=== PATIENT | male | born 1950 | race Caucasian/White ===

== ENCOUNTER 2016-11-05 19:54 | Inpatient (IN) | payer MEDICARE, OTHER ==
[~2016-11-05] VITALS: Ht 175.3 cm; Wt 111.6 kg
--- NOTE | 2016-11-05 21:00 | NUR ---
ADMITTED 66 Y/O MALE FROM [facility] , PEVIOUSLY ON ADULT SKILLED NURSING, ON 5150 HOLD, DTS AND DTO, BASED ON HOLD, PATIENT BECAME ENRAGED AT THIS ROOM MATE AND BROKE A LARGE GLASS WINDOW. PATIENT STATED THAT HIS ROOMMATE IS STALKING, THREATENING HIM AND HE SNAPPED THUS BREAKING A WINDOW WITH CHAIR. PATIENT ADMITTING DX. PSYCHOSIS AND DEPRESSION. UPON FACE TO FACE EVALUATION, PATIENT APPEARED ALERT AND ORIENTED X 3-4, ANXIOUS, AGITATED, COOPERATIVE TO THE ADMISSION PROCESS. PATIENT STATED THAT HIS PREVIOUS DOCTOR ADJUSTED HIS MEDICATION AND IT MAKES HIM VERY NERVOUS AND EXTREMELY FATIGUE. PATIENT HAS ALSO NO SOB, NO ACUTE DISTRESS, BREATHING EVEN AND UNLABORED, NO S/S OF PAIN AND DISCOMFORT, BELONGINGS AND CONTRABAND INSPECTED AND PLACED ON THE LOCKED CABINET. NOTIFIED DR. HOGAN AND LAURA TO RECONCILE MEDICATION. PATIENT WANTED NOT TO RELEASE ANY INFORMATION TO ANYONE. WILL CONTINUE TO MONITOR [id number] FOR SAFETY
[2016-11-05] MEDS ORDERED: BUPR150T10 PO (21:27)
[2016-11-05] MEDS ORDERED: DOXE10CA2 PO (21:27)
[2016-11-05] MEDS ORDERED: VENL150C58 PO (21:27)
[2016-11-05] MEDS ORDERED: MAG HYDROX/AL HYDROX/SIMETH 30 ML UDC PO PRN (21:30)
[2016-11-05] MEDS ORDERED: ACETAMINOPHEN 325 MG TABLET PO PRN (21:30)
[2016-11-05] MEDS ORDERED: MAGNESIUM HYDROXIDE 30 ML UDC PO PRN (21:30)
[2016-11-05 23:34] VITALS: BP 101/53
[2016-11-06] MEDS ORDERED: clonazePAM 0.5 MG TABLET ONE (06:16)
[2016-11-06 07:31] LABS: BASOPHILS % (AUTO) 0.4 % (0.0-2.0); EOSINOPHILS # (AUTO) 0.4 /CMM (0.0-0.7); EOSINOPHILS % (AUTO) 4.6 % (0.0-6.0); HEMATOCRIT 37 % (39-51); HEMOGLOBIN 12.8 g/dL (13.5-17.5); LYMPHOCYTES # (AUTO) 3.3 /CMM (0.8-4.8); LYMPHOCYTES % (AUTO) 36.4 % (20.0-44.0); MEAN CORPUSCULAR HEMOGLOBIN 30 PG (26.0-33.0); MEAN CORPUSCULAR HGB CONC 35 g/dl (31.0-36.0); MEAN CORPUSCULAR VOLUME 87 fL (80-96); MONOCYTES # (AUTO) 0.8 /CMM (0.1-1.30); MONOCYTES % (AUTO) 8.9 % (2.0-12.0); NEUTROPHILS # (AUTO) 4.5 /CMM (1.8-8.9); NEUTROPHILS % (AUTO) 49.7 % (43.0-81.0); PLATELET COUNT (AUTO) 321 /CMM (150-450); RDW COEFFICIENT OF VARIATION 12.6 (11.5-15.0); RED BLOOD CELL COUNT(AUTO) 4.24 MIL/uL (4.5-6.0); WHITE BLOOD COUNT (AUTO) 9.1 K/uL (4.3-11.0)
[2016-11-06 07:53] LABS: ALBUMIN 3.5 g/dL (3.4-5.0); BILIRUBIN,TOTAL 0.3 mg/dL (0.2-1.0); CALCIUM, SERUM 8.7 mg/dL (8.5-10.1); CREATININE 1.1 mg/dL (0.6-1.3); POTASSIUM 4.1 mmol/L (3.5-5.1); TOTAL PROTEIN, SERUM 7.3 g/dL (6.4-8.2)
[2016-11-06 08:00] VITALS: BP 118/76
[2016-11-06] MEDS: ARIPIPRAZOLE 2 MG TABLET PO SCH (12:00)
[2016-11-06] MEDS ORDERED: buPROPion SR 150 MG TABLET.ER PO SCH (12:00)
[2016-11-06] MEDS: VENLAFAXINE XR 150 MG CAP.SR.24H PO SCH ×2 (12:00→13:53)
[2016-11-06] MEDS: clonazePAM 0.5 MG TABLET PO PRN (12:21)
--- NOTE | 2016-11-06 12:22 | NUR ---
INTERIOR DESIGN INSTRUCTOR-NOTES PATIENT STATED " I NEED MY MEDICINE FOR MY ANXIETY". KLONOPIN 0.5MG P.O GIVEN PRN ORDER. WILL CONT. MONITORING FOR SAFETY AND BEHAVIOR.
[2016-11-06] MEDS: buPROPion SR 100 MG TABLET.ER PO SCH ×3 (12:30→17:20)
--- NOTE | 2016-11-06 13:31 | NUR ---
SPREAD CUTTER-NOTES PATIENT STRONGLY REFUSED ABILIFY 2MG P.O,EFFEXOR Xr 150mg P.O AND WELLBUTRIN Sr 100MG P.O. .PATIENT STATED" THERE IS NO POINT TAKING THESE MEDICATIONS BECAUSE ITS NOT HELPING ME". OFFERED X3.
--- NOTE | 2016-11-06 13:55 | NUR ---
CARDIOTHORACIC ICU RN-NOTES PATIENT STATED" GIVE ME THE WELLBUTRIN AND THE EFFEXOR NOT THE ABILIFY BECAUSE ITS NOT HELPING ME." WELLBUTRIN 100MG P.O AND EFFEXOR 150MG P.O GIVEN TO THE PATIENT. ABILIFY WAS DISCARDED WITNESS BY ONE OF THE FORGE HAND.
[2016-11-06 16:00] VITALS: BP 117/69
[2016-11-06 19:06] LABS: IRON, SERUM 58 ug/dl (50-175); TOTAL IRON BINDING CAPACITY 342 ug/dl (250-450)
[2016-11-06 20:33] VITALS: BP 115/65
[2016-11-06] MEDS: TEMAZEPAM 7.5 MG CAPSULE PO PRN (22:19)
[2016-11-07 08:00] VITALS: BP 118/69
[2016-11-07] MEDS: VENLAFAXINE XR 150 MG CAP.SR.24H PO SCH (08:15)
[2016-11-07] MEDS: buPROPion SR 100 MG TABLET.ER PO SCH ×2 (08:15→16:18)
[2016-11-07] MEDS: clonazePAM 0.5 MG TABLET PO PRN ×3 (08:19→21:02)
[2016-11-07] MEDS: ARIPIPRAZOLE 2 MG TABLET PO SCH (08:59)
[2016-11-07] MEDS: QUETIAPINE FUMARATE 100 MG TABLET PO SCH ×2 (12:28→17:12)
[2016-11-07] MEDS: GABAPENTIN 300 MG CAPSULE PO SCH ×2 (12:28→16:18)
--- NOTE | 2016-11-07 13:00 | NUR ---
Initial Discharge Plan: Patient resides at [facility] [address] [facility]. [facility], [address]. ([phone]). Pt. is unsure if he would like to return due to him not getting along with his roommate. Possible need for placement. used car make ready worker spoke to Viviana from [facility]. Who stated that they cannot take the patient back due to his behavior. used car make ready worker will help form a safe and proper discharge.
[2016-11-07 16:00] VITALS: BP 125/75
[2016-11-07] MEDS ORDERED: LEVO50TA8 PO (19:57)
[2016-11-07] MEDS ORDERED: ATEN50TA PO (19:57)
[2016-11-07] MEDS ORDERED: ATOR10TA PO (19:57)
[2016-11-07 20:59] VITALS: BP 114/48
[2016-11-08 08:00] VITALS: BP 140/85
[2016-11-08] MEDS: LEVOTHYROXINE SODIUM 50 MCG TABLET PO SCH (08:09)
[2016-11-08] MEDS: VENLAFAXINE XR 150 MG CAP.SR.24H PO SCH (08:09)
[2016-11-08] MEDS: QUETIAPINE FUMARATE 100 MG TABLET PO SCH ×2 (08:10→16:13)
[2016-11-08] MEDS: GABAPENTIN 300 MG CAPSULE PO SCH ×3 (08:10→16:13)
[2016-11-08] MEDS: ATENOLOL 50 MG TABLET PO SCH (08:13)
[2016-11-08] MEDS: clonazePAM 0.5 MG TABLET PO PRN (08:13)
--- NOTE | 2016-11-08 08:13 | NUR ---
[id number]: GAVE KLONOPIN 0.5 MG PO DUE TO SEVERE ANXIETY UPON PT REQUEST AND WILL CONTINUE TO MONITOR FOR EFFECTIVENESS OF MEDICATION
[2016-11-08] MEDS: buPROPion SR 100 MG TABLET.ER PO SCH ×2 (08:50→18:08)
--- NOTE | 2016-11-08 09:00 | NUR ---
[id number]: Pt. appears depressed, has flat affect. Pt stated, "I want my medication to increase the klonopin to 1 mg po. I give up." Asked pt if he has any thoughts of hurting self and others. Pt stated, "No I already told you." Provide close observation for safety and behavior.
--- NOTE | 2016-11-08 11:28 | NUR ---
Psychosocial assessment was reviewed and I concur with the information provided. No changes are necessary. James Higgins, SPORTS PSYCHOLOGIST [id number] Addendum: 11/08/16 at 1128 by JAMES HIGGINS SW Amended: Links added.
[2016-11-08] MEDS: clonazePAM 1 MG TABLET PO PRN (14:25)
--- NOTE | 2016-11-08 14:25 | NUR ---
[id number]: GAVE KLONOPIN 0.5 MG PO DUE TO SEVERE ANXIETY UPON PT REQUEST AND WILL CONTINUE TO MONITOR FOR EFFECTIVENESS OF MEDICATION.
[2016-11-08 16:00] VITALS: BP 106/64
[2016-11-08] MEDS: ATORVASTATIN 10 MG TABLET PO SCH (18:08)
[2016-11-08 20:00] VITALS: BP 103/59
[2016-11-08] MEDS: TEMAZEPAM 7.5 MG CAPSULE PO PRN (22:16)
[2016-11-09 08:00] VITALS: BP 125/64
[2016-11-09] MEDS: GABAPENTIN 300 MG CAPSULE PO SCH ×3 (08:13→16:40)
[2016-11-09] MEDS: QUETIAPINE FUMARATE 100 MG TABLET PO SCH ×2 (08:13→16:40)
[2016-11-09] MEDS: LEVOTHYROXINE SODIUM 50 MCG TABLET PO SCH (08:13)
[2016-11-09] MEDS: VENLAFAXINE XR 150 MG CAP.SR.24H PO SCH (08:13)
[2016-11-09] MEDS: ATENOLOL 50 MG TABLET PO SCH (08:14)
[2016-11-09] MEDS: buPROPion SR 100 MG TABLET.ER PO SCH ×2 (08:16→16:40)
[2016-11-09] MEDS: clonazePAM 1 MG TABLET PO PRN ×2 (08:18→14:54)
--- NOTE | 2016-11-09 08:18 | NUR ---
[id number]: GAVE KLONOPIN 1 MG PO DUE TO SEVERE ANXIETY UPON PT REQUEST AND WILL CONTINUE TO MONITOR FOR EFFECTIVENESS OF MEDICATION
[2016-11-09 16:17] VITALS: BP 110/72
[2016-11-09] MEDS: ATORVASTATIN 10 MG TABLET PO SCH (16:40)
[2016-11-09 20:18] VITALS: BP 102/61
[2016-11-09] MEDS: TEMAZEPAM 7.5 MG CAPSULE PO PRN (21:30)
[2016-11-10] MEDS: GABAPENTIN 300 MG CAPSULE PO SCH ×2 (08:13→12:50)
[2016-11-10] MEDS: VENLAFAXINE XR 150 MG CAP.SR.24H PO SCH (08:14)
[2016-11-10] MEDS: clonazePAM 1 MG TABLET PO PRN ×2 (08:15→15:22)
[2016-11-10] MEDS: LEVOTHYROXINE SODIUM 50 MCG TABLET PO SCH (08:15)
[2016-11-10] MEDS: QUETIAPINE FUMARATE 100 MG TABLET PO SCH ×2 (08:15→16:49)
[2016-11-10] MEDS: buPROPion SR 100 MG TABLET.ER PO SCH ×2 (08:15→16:49)
[2016-11-10] MEDS: ATENOLOL 50 MG TABLET PO SCH (08:15)
--- NOTE | 2016-11-10 08:15 | NUR ---
GPS/RN PATIENT REPORTS SEVERE ANXIETY, REQUESTED KLONOPIN 1 MG, ADMINISTERED ORDERED, WILL CONTINUE TO MONITOR.
[2016-11-10 08:46] VITALS: BP 127/93
--- NOTE | 2016-11-10 15:22 | NUR ---
GPS/RN PATIENT REPORTS SEVERE ANXIETY, REQUESTED KLONOPIN 1 MG, ADMINISTERED ORDERED, WILL CONTINUE TO MONITOR.
[2016-11-10 16:21] VITALS: BP 117/80
[2016-11-10] MEDS: GABAPENTIN 400 MG CAPSULE PO SCH (16:49)
[2016-11-10] MEDS: ATORVASTATIN 10 MG TABLET PO SCH (17:15)
[2016-11-10 20:00] VITALS: BP 102/64
--- NOTE | 2016-11-10 20:30 | NUR ---
RN INITIAL NOTES: PT IN THE DINING ROOM, A/O X3, PT IS COOPERATIVE BUT WITHDRAWN, WITH POOR JUDGMENT, PT NOTED TO HAVE GOOD APPETITE, WITHDRAWN, HOWEVER COMPLAINT WITH MEDICATION.PT DENIES ANY PLANS OF HURTING HIMSELF. WILL CONTINUE TO MONITOR PT [id number] FOR SAFETY AND CHANGES IN BEHAVIOR.
--- NOTE | 2016-11-11 06:32 | NUR ---
RN CLOSING NOTES: PT IN BED, AWAKE, REMAINS A/O X3 COOPERATIVE NO SOB NOTED, DENIES ANY SUICIDAL THOUGHTS, REMAINS COMPLIANT WITH MEDICATION. VS REMAINS STABLE, NEEDS ATTENDED, WILL ENDORSE TO DAY RN FOR SARITA.
[2016-11-11 08:00] VITALS: BP 113/73
[2016-11-11] MEDS: LEVOTHYROXINE SODIUM 50 MCG TABLET PO SCH (08:24)
[2016-11-11] MEDS: GABAPENTIN 400 MG CAPSULE PO SCH ×3 (08:26→16:18)
[2016-11-11] MEDS: buPROPion SR 100 MG TABLET.ER PO SCH ×2 (08:26→16:18)
[2016-11-11] MEDS: ATENOLOL 50 MG TABLET PO SCH (08:26)
[2016-11-11] MEDS: VENLAFAXINE XR 150 MG CAP.SR.24H PO SCH (08:26)
[2016-11-11] MEDS: QUETIAPINE FUMARATE 100 MG TABLET PO SCH (08:26)
[2016-11-11] MEDS: clonazePAM 1 MG TABLET PO PRN ×2 (09:37→20:23)
--- NOTE | 2016-11-11 09:40 | NUR ---
RADIATOR TESTER-NOTES PATIENT REQUESTING KLONOPIN. STATED" I NEED KLONOPIN TO CALM ME DOWN, I'M ANXIOUS".KLONOPIN 1MG P.O GIVEN PRN ORDER. WILL CONT. MONITORING FOR SAFETY AND BEHAVIOR.
[2016-11-11 16:00] VITALS: BP 121/66
[2016-11-11] MEDS: QUETIAPINE FUMARATE 25 MG TABLET PO SCH (16:18)
[2016-11-11] MEDS: ATORVASTATIN 10 MG TABLET PO SCH (18:16)
[2016-11-11 20:00] VITALS: BP 105/56
[2016-11-12] MEDS: LEVOTHYROXINE SODIUM 50 MCG TABLET PO SCH (07:55)
[2016-11-12 08:00] VITALS: BP 122/72
[2016-11-12] MEDS: QUETIAPINE FUMARATE 25 MG TABLET PO SCH ×2 (08:01→16:20)
[2016-11-12] MEDS: ATENOLOL 50 MG TABLET PO SCH (08:02)
[2016-11-12] MEDS: buPROPion SR 100 MG TABLET.ER PO SCH ×2 (08:02→16:21)
[2016-11-12] MEDS: VENLAFAXINE XR 150 MG CAP.SR.24H PO SCH (08:02)
[2016-11-12] MEDS: GABAPENTIN 400 MG CAPSULE PO SCH ×3 (08:02→16:21)
[2016-11-12] MEDS: clonazePAM 1 MG TABLET PO PRN ×2 (08:06→21:30)
--- NOTE | 2016-11-12 08:08 | NUR ---
GPS RN: ADMINISTERED CLONAZEPAM 1MG PO ORDERED FOR C/O ANXIETY. VS STABLE, CONTINUE TO MONITOR.
[2016-11-12 16:03] VITALS: BP 105/65
[2016-11-12] MEDS: ATORVASTATIN 10 MG TABLET PO SCH (18:04)
--- NOTE | 2016-11-12 19:30 | NUR ---
GPS RN NOTE, RECEIVED PATIENT AWAKE AND IN BED, NO S/S OR COMPLAINTS OF PAIN AT THIS TIME. PATIENT IS DISPLAYING NO S/S OF APPARENT DISTRESS AT THIS TIME. PATIENT BREATHING IS UNLABORED WITH EQUAL RISE AND FALL OF THE CHEST. PATIENT IS ALERT AND ORIENTED X 3-4 ON ROOM AIR WITH A SPO2 96%. PATIENT COMPLIANT WITH MEDICATION, DEPRESSED, COOPERATIVE, PARANOID, GUARDED, AND NEEDS REORIENTATION. PATIENT DENIES SUICIDE AND HOMICIDAL IDEATIONS AT THIS TIME. PATIENT ASSISTED WITH TURNING AND REPOSITIONING Q2HR AND PRN FOR COMFORT AND CIRCULATION. PATIENT HAS NO NEEDS AT THIS TIME. PATIENT EDUCATED ON THE USE OF THE CALL [place]. PATIENT BED SIDE RAILS UP X2 FOR SAFETY, BED IS LOCKED AND LOW WILL CONTINUE TO MONITOR AND MAINTAIN SAFETY.
[2016-11-12 20:00] VITALS: BP 103/54
--- NOTE | 2016-11-12 21:30 | NUR ---
GPS RN NOTE, PATIENT HAS A COMPLAINT OF FEELING ANXIOUS AND WOULD LIKE MEDICATION AT THIS TIME. PATIENT VITAL SIGNS ARE STABLE. GAVE KLONOPIN 1MG PO BID PRN ORDERED. WILL REASSESS FOR ANXIETY AND I WILL CONTINUE TO MONITOR THIS PATIENT.
[2016-11-12] MEDS ORDERED: QUETIAPINE FUMARATE 100 MG TABLET PO SCH (22:00)
[2016-11-13 08:00] VITALS: BP 100/74
[2016-11-13] MEDS: GABAPENTIN 400 MG CAPSULE PO SCH ×3 (09:15→16:56)
[2016-11-13] MEDS: VENLAFAXINE XR 150 MG CAP.SR.24H PO SCH (09:16)
[2016-11-13] MEDS: ATENOLOL 50 MG TABLET PO SCH (09:16)
[2016-11-13] MEDS: buPROPion SR 100 MG TABLET.ER PO SCH ×2 (09:16→16:56)
[2016-11-13] MEDS: QUETIAPINE FUMARATE 25 MG TABLET PO SCH ×2 (09:16→16:58)
[2016-11-13] MEDS: LEVOTHYROXINE SODIUM 50 MCG TABLET PO SCH (09:16)
[2016-11-13] MEDS: clonazePAM 1 MG TABLET PO PRN (09:20)
--- NOTE | 2016-11-13 09:21 | NUR ---
GPS RN: ADMINISTERED CLONAZEPAM 1MG PO ORDERED FOR C/O ANXIETY. VS STABLE, CONTINUE TO MONITOR.
[2016-11-13 16:07] VITALS: BP 123/71
[2016-11-13] MEDS: ATORVASTATIN 10 MG TABLET PO SCH (17:00)
[2016-11-13 20:39] VITALS: BP 110/70
[2016-11-13] MEDS ORDERED: QUETIAPINE FUMARATE 100 MG TABLET PO SCH (22:00)
[2016-11-14] MEDS: clonazePAM 1 MG TABLET PO PRN (01:24)
[2016-11-14 08:00] VITALS: BP 121/82
[2016-11-14] MEDS: GABAPENTIN 400 MG CAPSULE PO SCH ×2 (08:32→12:29)
[2016-11-14] MEDS: LEVOTHYROXINE SODIUM 50 MCG TABLET PO SCH (08:32)
[2016-11-14] MEDS: buPROPion SR 100 MG TABLET.ER PO SCH (08:32)
[2016-11-14] MEDS: VENLAFAXINE XR 150 MG CAP.SR.24H PO SCH (08:32)
[2016-11-14] MEDS: QUETIAPINE FUMARATE 25 MG TABLET PO SCH (08:32)
[2016-11-14 08:33] VITALS: BP 121/82
[2016-11-14] MEDS: ATENOLOL 50 MG TABLET PO SCH (08:33)
--- NOTE | 2016-11-14 15:05 | NUR ---
PATIENT CLEARED FOR DISCHARGE TO [facility] BY DR HOGAN AND DR ESCALANTE. MEDICATIONS RECONCILED BY BOTH DR'S AND EXPLAINED TO PATIENT, VERBALIZED UNDERSTANDING, ALL D/C PAPER WORK SIGNED AND EXPLAINED TO PATIENT, VERBALIZED UNDERSTANDING,BELONGINGS RETURNED AND SIGNED FOR, PSYCHIATRIC TREATMENT PLANS MET, REPORT CALLED TO PIETRO AT FACILITY, MEDICATION LIST FAXED TO FACILITY,PATIENT DENIES SI/HI/AH UPON DISCHARGE, LEFT UNIT CALM, COOPERATIVE, STABLE CONDITION, EMT AT SIDE, NO DISTRESS NOTED.
--- NOTE | 2016-11-14 15:22 | NUR ---
Discharge Note: Patient was discharged to [facility] [address] [place] [address]. . Via med response. Patient did not have any family to contact. Patient was agreeable with the discharge plan. Patient's mood and affect were appropriate upon discharge. Patient denied suicidal and homicidal ideations. [facility] [place] [id number] [facility] [address] ([phone]). For smoking cessation patient was [facility] [address] [facility] 8 upstars. Facilitated info to IDT team who are in agreement with discharge arrangement. The multidisciplinary exitcare form was done, printed, signed, and given to the patient.
== END 2016-11-14 14:20 | DRG 885 ==
LOC: GPS 20:41
PROVIDERS: ADMIT Psychiatry & Neurology Psychiatry; ATTEND Internal Medicine
DX: F39 Unspecified mood [affective] disorder (principal); D64.9 Anemia, unspecified; E03.9 Hypothyroidism, unspecified; E78.5 Hyperlipidemia, unspecified; F03.90 Unspecified dementia, unspecified severity, without behavioral disturbance, psychotic disturbance, mood disturbance, and anxiety; F29 Unspecified psychosis not due to a substance or known physiological condition; I10 Essential (primary) hypertension; F41.9 Anxiety disorder, unspecified; Z73.6 Limitation of activities due to disability; Z79.899 Other long term (current) drug therapy
CPT/HCPCS: 36415; 80053-TC; 80061-TC; 83540-TC; 85025-TC; 87081-TC

== ENCOUNTER 2016-12-30 18:13 | Inpatient (IN) | payer MEDICARE, OTHER ==
[~2016-12-30] VITALS: Ht 182.9 cm; Wt 83.9 kg
[~2016-12-30 18:13] MED LIST: ATEN50TA PO; ATOR10TA PO; BUPR150T10 PO; LEVO50TA8 PO; VENL150C58 PO
--- NOTE | 2016-12-30 18:30 | NUR ---
PT TO ED ROOM 04. BIB EMS FROM ASSISTED FOR INCREASING DEPRESSION. A/A/O. AMBULATORY WITH STEADY GAIT. SIDE RAISL UP. HOB ELEVATED. SEEN AND EVALAUTED BY ED PROVIDER.
[2016-12-30 18:40] LABS: BASOPHILS % (AUTO) 0.4 % (0.0-2.0); EOSINOPHILS # (AUTO) 0.5 /CMM (0.0-0.7); EOSINOPHILS % (AUTO) 4.5 % (0.0-6.0); HEMATOCRIT 39 % (39-51); LYMPHOCYTES # (AUTO) 3.9 /CMM (0.8-4.8); LYMPHOCYTES % (AUTO) 34.6 % (20.0-44.0); MEAN CORPUSCULAR HEMOGLOBIN 29 PG (26.0-33.0); MEAN CORPUSCULAR HGB CONC 33 g/dl (31.0-36.0); MEAN CORPUSCULAR VOLUME 87 fL (80-96); MONOCYTES # (AUTO) 1.1 /CMM (0.1-1.30); MONOCYTES % (AUTO) 9.5 % (2.0-12.0); NEUTROPHILS # (AUTO) 5.9 /CMM (1.8-8.9); PLATELET COUNT (AUTO) 380 /CMM (150-450); RDW COEFFICIENT OF VARIATION 11.7 (11.5-15.0); RED BLOOD CELL COUNT(AUTO) 4.48 MIL/uL (4.5-6.0); WHITE BLOOD COUNT (AUTO) 11.4 K/uL (4.3-11.0)
[2016-12-30 18:47] LABS: CALCIUM, SERUM 8.8 mg/dL (8.5-10.1); CARBON DIOXIDE 29 mmol/L (21-32); CHLORIDE 102 mmol/L (98-107); CREATININE 1.1 mg/dL (0.6-1.3); GLUCOSE 88 mg/dL (74-106); POTASSIUM 4.2 mmol/L (3.5-5.1); SODIUM SERUM 137 mmol/L (136-145); UREA NITROGEN, BLOOD 13 mg/dL (7-18)
--- NOTE | 2016-12-30 18:50 | NUR ---
URINE SAMPLE COLLECTED AND SEND TO LAB
[2016-12-30 18:53] LABS: ALANINE AMINOTRANSFERASE 25 U/L (12-78); ALBUMIN 3.6 g/dL (3.4-5.0); ALCOHOL, BLOOD < 3 mg/dL (0-0); ALKALINE PHOSPHATASE 82 U/L (46-116); ASPARTATE AMINOTRANSFERASE 15 U/L (15-37); BILIRUBIN,DIRECT 0.1 mg/dL (0.0-0.2); BILIRUBIN,TOTAL 0.2 mg/dL (0.2-1.0); SALICYLATE 3.4 mg/dL (2.8-20.0); TOTAL PROTEIN, SERUM 7.5 g/dL (6.4-8.2)
[2016-12-30 18:55] LABS: ACETAMINOPHEN 0 ug/ml (10-30)
--- NOTE | 2016-12-30 19:00 | NUR ---
CALLED [facility] FOR PSYCH EVAL, ETA 1 HOUR
[2016-12-30 19:34] LABS: APPEARANCE,URINE Clear (CLEAR); BILIRUBIN,URINE Negative (NEGATIVE); BLOOD, URINE Trace-intact Ery/uL (NEGATIVE); COLOR,URINE Yellow (YELLOW); KETONES,URINE Negative (NEGATIVE); LEUKOCYTE ESTERASE ,URINE Moderate (NEGATIVE); NITRITE, URINE Negative (NEGATIVE); PROTEIN,URINE Negative (NEGATIVE); UGLUCOSE Negative (NEGATIVE); UROBILINOGEN,URINE 0.2 EU/dL (0.2)
--- NOTE | 2016-12-30 19:45 | NUR ---
BETTY AHMADI VINYL INSTALLER AT BEDSIDE TO EVAL PT.
[2016-12-30 19:47] LABS: RBC,URINE 0-2 /HPF (0-2)
[2016-12-30 19:48] LABS: BACTERIA,URINE Moderate /HPF (None Seen); SQUAMOUS EPITHELIAL CELL,UR Few /HPF (None Seen)
--- NOTE | 2016-12-30 21:01 | NUR ---
REPORT CALLED TO [facility]. WILL TRANSPORT PT TO ROOM 217.
[2016-12-30] MEDS ORDERED: TEMAZEPAM 7.5 MG CAPSULE PO PRN (22:00)
[2016-12-30] MEDS ORDERED: MAGNESIUM HYDROXIDE 30 ML UDC PO PRN (22:00)
[2016-12-30] MEDS ORDERED: MAG HYDROX/AL HYDROX/SIMETH 30 ML UDC PO PRN (22:00)
[2016-12-30] MEDS ORDERED: TEMAZEPAM 7.5 MG CAPSULE ONE (22:18)
--- NOTE | 2016-12-30 22:44 | NUR ---
GPS RN ADMITTED NOTES ADMITTED THIS 66Y/O MALE FROM [facility] ,PT INITIALLY CAME FROM [facility] , PT. [facility] ER STAFF PT. IS ON 5150 HOLD DANGER TO HIMSELF, PER HOLD HAVING SUCIDIAL IDEATION FEELINGS MISERABLE WANTING TO HARM HIMSELF AND DOES NOT FEEL SAFE IN THE [facility] ,UPON FACE TO FACE ASSESSMENT, PT. A/O , AMBULATORY DEPPRSIVE ANXIOUS , HE HAS POOR INSIGHT POOR JUDGEMENTAND POOR IMPULSE CONTROL ,MENTAL HX OF MOOD DISORDED DEPRESSION, DEMENTIA .MEDICAL HX OF HTN HYPOTHYRIDISM , PT. REFUSED SKIN BODY ASSESSMENT PT. STATED MY SKIN IS FINE , ENCOURAGED FOR SKIN BODY ASSESSMENT, EXPLAINED RISKS AND BENEFITS PT. STILL REFUSED SKIN/ BODY ASSESSMENT , MRSA SCREENING DONE IN ER ,BOTH MD AWARE OF NEW ADMISSION NEW ORDERS RECEIVED AND CARRIED OUT, REORIENT TO UNIT POLICES AND CONTRABAND CHECKS , WILL CONTINUE TO MONITOR FOR SAFETY AND BEHAVIOR .
[2016-12-30 23:28] VITALS: BP 125/78
[2016-12-31] MEDS ORDERED: SENN8.6T6 PO (01:42)
[2016-12-31] MEDS ORDERED: QUET100T PO (01:42)
[2016-12-31] MEDS ORDERED: GABA-536 PO (01:42)
[2016-12-31] MEDS ORDERED: DOCU-25 PO (01:42)
--- NOTE | 2016-12-31 06:06 | NUR ---
RN GPS NOTES PT. REFUSED SKIN BODY ASSESSMENT PT. STATED MY SKIN IS FINE , ENCOURAGED FOR SKIN BODY ASSESSMENT, EXPLAINED RISKS AND BENEFITS PT. STILL REFUSED SKIN/ BODY ASSESSMENT , WILL ENDORSE TO NEXT SHIFT FOR CONTINUTY OF CARE .
[2016-12-31 07:23] LABS: BASOPHILS % (AUTO) 0.3 % (0.0-2.0); EOSINOPHILS # (AUTO) 0.5 /CMM (0.0-0.7); EOSINOPHILS % (AUTO) 4.7 % (0.0-6.0); HEMATOCRIT 39 % (39-51); HEMOGLOBIN 13.4 g/dL (13.5-17.5); LYMPHOCYTES # (AUTO) 4.4 /CMM (0.8-4.8); LYMPHOCYTES % (AUTO) 38.7 % (20.0-44.0); MEAN CORPUSCULAR HEMOGLOBIN 30 PG (26.0-33.0); MEAN CORPUSCULAR HGB CONC 34 g/dl (31.0-36.0); MEAN CORPUSCULAR VOLUME 87 fL (80-96); MONOCYTES # (AUTO) 1.2 /CMM (0.1-1.30); MONOCYTES % (AUTO) 10.8 % (2.0-12.0); NEUTROPHILS # (AUTO) 5.2 /CMM (1.8-8.9); NEUTROPHILS % (AUTO) 45.5 % (43.0-81.0); PLATELET COUNT (AUTO) 342 /CMM (150-450); RDW COEFFICIENT OF VARIATION 12.6 (11.5-15.0); RED BLOOD CELL COUNT(AUTO) 4.46 MIL/uL (4.5-6.0); WHITE BLOOD COUNT (AUTO) 11.5 K/uL (4.3-11.0)
[2016-12-31 07:37] LABS: ALBUMIN 3.4 g/dL (3.4-5.0); BILIRUBIN,TOTAL 0.2 mg/dL (0.2-1.0); CALCIUM, SERUM 9.2 mg/dL (8.5-10.1); CREATININE 1.2 mg/dL (0.6-1.3); POTASSIUM 4.2 mmol/L (3.5-5.1); TOTAL PROTEIN, SERUM 7.3 g/dL (6.4-8.2)
[2016-12-31 07:40] LABS: CHOLESTEROL 129 mg/dL (<200); HDL CHOLESTEROL 37 mg/dL (40-60); LDL 63 mg/dL (0-99); TRIGLYCERIDES 258 mg/dL (30-150)
[2016-12-31 08:00] VITALS: BP 100/56
[2016-12-31] MEDS: clonazePAM 0.5 MG TABLET PO PRN ×2 (09:28→16:00)
[2016-12-31] MEDS: ACETAMINOPHEN 325 MG TABLET PO PRN (09:28)
--- NOTE | 2016-12-31 09:29 | NUR ---
administered klonopin 0.5 mg po prn, and tylenol 650 mg po prn for generalized pain 5/10, v/s taken, bp-108/66, p-77, continued monitoring.
[2016-12-31] MEDS: GABAPENTIN 400 MG CAPSULE PO SCH ×2 (13:06→16:00)
[2016-12-31 16:00] VITALS: BP 113/60
[2016-12-31] MEDS: VENLAFAXINE XR 150 MG CAP.SR.24H PO SCH (16:00)
--- NOTE | 2016-12-31 16:00 | NUR ---
administered klonopin 0.5 mg po prn for anxiety, paranoia, v/s taken bp -113/60,p-73, continued monitoring.
[2016-12-31] MEDS: DOCUSATE SODIUM 100 MG CAPSULE PO SCH (16:40)
[2016-12-31] MEDS: ATORVASTATIN 10 MG TABLET PO SCH (16:56)
[2016-12-31 20:00] VITALS: BP 112/62
[2016-12-31] MEDS: QUETIAPINE FUMARATE 100 MG TABLET PO SCH (21:19)
[2016-12-31] MEDS ORDERED: QUETIAPINE FUMARATE 100 MG TABLET PO SCH (22:00)
[2017-01-01 08:00] VITALS: BP 110/67
[2017-01-01] MEDS: DOCUSATE SODIUM 100 MG CAPSULE PO SCH ×2 (08:35→17:17)
[2017-01-01] MEDS: LEVOTHYROXINE SODIUM 50 MCG TABLET PO SCH (08:35)
[2017-01-01] MEDS: GABAPENTIN 400 MG CAPSULE PO SCH ×3 (08:35→17:17)
[2017-01-01] MEDS: VENLAFAXINE XR 150 MG CAP.SR.24H PO SCH (08:35)
[2017-01-01] MEDS: SENNOSIDES 8.6 MG TABLET PO SCH (08:35)
[2017-01-01] MEDS: ATENOLOL 50 MG TABLET PO SCH (08:36)
[2017-01-01] MEDS: clonazePAM 0.5 MG TABLET PO PRN ×2 (08:41→21:20)
[2017-01-01] MEDS ORDERED: VENLAFAXINE XR 150 MG CAP.SR.24H PO SCH (09:00)
[2017-01-01] MEDS ORDERED: SENNOSIDES 8.6 MG TABLET PO SCH (09:00)
[2017-01-01] MEDS: ACETAMINOPHEN 325 MG TABLET PO PRN (11:29)
[2017-01-01] MEDS ORDERED: LORAZEPAM INJ 2 MG/ML VIAL IM STA (11:46)
[2017-01-01] MEDS ORDERED: OLANZAPINE 10 MG VIAL IM STA (11:46)
--- NOTE | 2017-01-01 12:00 | NUR ---
[id number]: PT IS ANXIOUS, RESTLESS, EASILY IRRITABLE, UNPREDICTABLE, NON-COOPERATIVE WITH STAFF, AGGRESSIVE, COMBATIVE. ESCORTED PT BACK TO HIS ROOM. DECREASE EXTERNAL STIMULI. PROVIDE A CALM AND QUIET ENVIRONMENT. PROVIDE LESS RESTRICTIVE MEASURES BUT PT CONTINUES TO BE VERBALLY ABUSIVE TOWARDS STAFF, YELLING INTERMITTENTLY, WALKING IN A THREATENING MANNER AROUND THE UNIT. NOTIFIED DR. PRIETO ABOUT PT'S BEHAVIOR AND DR. PRIETO ORDERED ZYPREXA 10 MG IM AND ATIVAN 1 IM. WILL CONTINUE TO MONITOR FOR THE EFFECTIVENESS OF MEDICATION.
[2017-01-01 16:00] VITALS: BP 111/68
[2017-01-01] MEDS: ATORVASTATIN 10 MG TABLET PO SCH (17:17)
[2017-01-01 19:55] VITALS: BP 104/60
--- NOTE | 2017-01-01 21:04 | NUR ---
GPS/RN NOTE: PATIENT IS AWAKE AT THIS TIME, ASKING FOR HIS KLONOPIN. CALM, PLEASANT, COOPERATIVE. NO ACUTE DISTRESS NOTED. MED COMPLIANT.
[2017-01-01] MEDS: QUETIAPINE FUMARATE 100 MG TABLET PO SCH (21:20)
--- NOTE | 2017-01-01 21:26 | NUR ---
GPS/RN NOTE; PATIENT CAME UP TO THE N. STATION ASKING FOR KLONOPIN, 1 MG TAB PO GIVEN FOR ANXIETY.
[2017-01-02 08:00] VITALS: BP 100/51
[2017-01-02] MEDS: LEVOTHYROXINE SODIUM 50 MCG TABLET PO SCH (08:57)
[2017-01-02] MEDS: SENNOSIDES 8.6 MG TABLET PO SCH (08:57)
[2017-01-02] MEDS: GABAPENTIN 400 MG CAPSULE PO SCH ×3 (08:57→16:42)
[2017-01-02] MEDS: VENLAFAXINE XR 150 MG CAP.SR.24H PO SCH (08:57)
[2017-01-02] MEDS: DOCUSATE SODIUM 100 MG CAPSULE PO SCH ×2 (08:57→16:42)
[2017-01-02] MEDS: ATENOLOL 50 MG TABLET PO SCH (08:59)
[2017-01-02] MEDS: clonazePAM 0.5 MG TABLET PO PRN ×2 (09:02→12:53)
--- NOTE | 2017-01-02 09:02 | NUR ---
[id number]: GAVE ATIVAN 0.5 MG PO DUE TO INCREASED ANXIETY UPON PT REQUEST AND WILL CONTINUE TO MONITOR FOR EFFECTIVENESS OF MEDICATION.
--- NOTE | 2017-01-02 12:53 | NUR ---
[id number]: GAVE ATIVAN 1 MG PO DUE TO INCREASED ANXIETY UPON PT REQUEST AND WILL CONTINUE TO MONITOR FOR EFFECTIVENESS OF MEDICATION.
--- NOTE | 2017-01-02 15:26 | NUR ---
Initial Discharge Plan: Patient resides at [address] [place] [address]. . Patient stated, "at this point I will suffer any where I go, so it does not matter where I go." TREE spoke to Maynor from the facility who confirmed that patient can return upon discharge. powder worker will help form a safe and proper discharge.
[2017-01-02 16:00] VITALS: BP 121/76
[2017-01-02] MEDS: ATORVASTATIN 10 MG TABLET PO SCH (17:08)
[2017-01-02 19:42] VITALS: BP 114/66
[2017-01-02] MEDS: QUETIAPINE FUMARATE 100 MG TABLET PO SCH (21:30)
--- NOTE | 2017-01-02 23:23 | NUR ---
GPS/RN PATIENT IS SLEEPING AT THIS TIME, CALM AND COMFORTABLE, BREATHING EVEN AND UNLABORED. WILL CONTINUE TO MONITOR.
--- NOTE | 2017-01-03 06:27 | NUR ---
GPS/RN STILL SLEEPING AT THIS TIME, AROUSABLE, APPEAR COMFORTABLE, ALL NEEDS ATTENDED AT THIS TIME. WILL CONTINUE TO MONITOR.
[2017-01-03 08:00] VITALS: BP 103/57
[2017-01-03] MEDS: DOCUSATE SODIUM 100 MG CAPSULE PO SCH ×2 (08:32→16:35)
[2017-01-03] MEDS: GABAPENTIN 400 MG CAPSULE PO SCH ×3 (08:32→16:35)
[2017-01-03] MEDS: VENLAFAXINE XR 150 MG CAP.SR.24H PO SCH (08:32)
[2017-01-03] MEDS: clonazePAM 0.5 MG TABLET PO PRN ×2 (08:33→16:35)
[2017-01-03] MEDS: SENNOSIDES 8.6 MG TABLET PO SCH (08:33)
[2017-01-03] MEDS: LEVOTHYROXINE SODIUM 50 MCG TABLET PO SCH (08:33)
[2017-01-03] MEDS: ATENOLOL 50 MG TABLET PO SCH (08:33)
[2017-01-03] MEDS: SULFAMETH/TRIMETH 800/160 MG 1 UDTAB TABLET PO SCH ×2 (13:20→21:11)
[2017-01-03 15:58] VITALS: BP 112/73
[2017-01-03] MEDS: ATORVASTATIN 10 MG TABLET PO SCH (17:03)
[2017-01-03 19:43] VITALS: BP 108/60
--- NOTE | 2017-01-03 20:00 | NUR ---
PATIENT IN BED, ALERT AND ORIENTED X3, DEPRESSED, FLAT AFFECT, DOES NOT INITIATE INTERACTION. APPROPRIATE RESPONSE, DENIES ANY PAIN AT THIS TIME, KEPT SAFE AND COMFORTABLE, WILL CONTINUE TO MONITOR.
[2017-01-03] MEDS: QUETIAPINE FUMARATE 100 MG TABLET PO SCH (21:11)
[2017-01-03] MEDS: DULOXETINE HCL 30 MG CAPSULE.DR PO SCH (21:11)
--- NOTE | 2017-01-04 06:45 | NUR ---
GPS/RN NOTES PATIENT IS ALERT AND AWAKE, NO DISTRESS, SLEPT DURING SHIFT, NO BEHAVIOR DISTURBANCE, KEPT SAFE, WILL ENDORSE TO AM SHIFT FOR SARITA.
[2017-01-04 08:00] VITALS: BP 124/62
[2017-01-04] MEDS: SULFAMETH/TRIMETH 800/160 MG 1 UDTAB TABLET PO SCH ×2 (08:32→21:49)
[2017-01-04] MEDS: LEVOTHYROXINE SODIUM 50 MCG TABLET PO SCH (08:32)
[2017-01-04] MEDS: ATENOLOL 50 MG TABLET PO SCH (08:32)
[2017-01-04] MEDS: SENNOSIDES 8.6 MG TABLET PO SCH (08:32)
[2017-01-04] MEDS: VENLAFAXINE XR 150 MG CAP.SR.24H PO SCH (08:32)
[2017-01-04] MEDS: DOCUSATE SODIUM 100 MG CAPSULE PO SCH ×2 (08:32→17:07)
[2017-01-04] MEDS: GABAPENTIN 400 MG CAPSULE PO SCH ×3 (08:32→17:07)
[2017-01-04] MEDS: clonazePAM 0.5 MG TABLET PO PRN (13:49)
[2017-01-04 16:29] VITALS: BP 102/68
[2017-01-04] MEDS: ATORVASTATIN 10 MG TABLET PO SCH (18:07)
[2017-01-04 20:00] VITALS: BP 111/71
[2017-01-04] MEDS: QUETIAPINE FUMARATE 100 MG TABLET PO SCH (21:49)
[2017-01-04] MEDS: DULOXETINE HCL 30 MG CAPSULE.DR PO SCH (21:49)
--- NOTE | 2017-01-05 06:43 | NUR ---
GPS/RN STILL SLEEPING AT THIS TIME, CALM AND COMFORTABLE, NO SIGNS OF DISTRESS NOTED, ALL NEEDS ATTENDED AT THIS TIME. WILL CONTINUE TO MONITOR.
[2017-01-05 08:00] VITALS: BP 125/67
--- NOTE | 2017-01-05 09:00 | NUR ---
RN NOTES MEDICATIONS MAY BE LATE THE NURSE DOES NOT HAVE ACCESS TO THE PIXIS. MANAGER SERVICING IS BUSY PREPARING FOR ANOTHER PATIENT COURT HEARING. WILL ADMINISTER SOON ABLE.
[2017-01-05 10:00] VITALS: BP 125/67
[2017-01-05] MEDS: DOCUSATE SODIUM 100 MG CAPSULE PO SCH ×2 (10:00→17:19)
[2017-01-05] MEDS: SENNOSIDES 8.6 MG TABLET PO SCH (10:00)
[2017-01-05] MEDS: LEVOTHYROXINE SODIUM 50 MCG TABLET PO SCH (10:00)
[2017-01-05] MEDS: GABAPENTIN 400 MG CAPSULE PO SCH ×3 (10:00→17:19)
[2017-01-05] MEDS: VENLAFAXINE XR 150 MG CAP.SR.24H PO SCH (10:00)
[2017-01-05] MEDS: ATENOLOL 50 MG TABLET PO SCH (10:01)
[2017-01-05] MEDS: SULFAMETH/TRIMETH 800/160 MG 1 UDTAB TABLET PO SCH ×2 (10:01→21:25)
[2017-01-05] MEDS: clonazePAM 0.5 MG TABLET PO PRN (13:17)
[2017-01-05 16:00] VITALS: BP 111/54
[2017-01-05] MEDS: ATORVASTATIN 10 MG TABLET PO SCH (17:19)
--- NOTE | 2017-01-05 19:11 | NUR ---
GPS/RN NOTE: PATIENT AT THE DINING AREA, APPEARS CALM, RELAXED WITH NO S/S OF DISCOMFORT. NO APPARENT DISTRESS NOTED.
[2017-01-05 20:00] VITALS: BP 100/64
[2017-01-05] MEDS: DULOXETINE HCL 30 MG CAPSULE.DR PO SCH (21:25)
[2017-01-05] MEDS: QUETIAPINE FUMARATE 100 MG TABLET PO SCH (21:26)
[2017-01-06 08:00] VITALS: BP 108/65
[2017-01-06] MEDS: VENLAFAXINE XR 150 MG CAP.SR.24H PO SCH (08:30)
[2017-01-06] MEDS: SULFAMETH/TRIMETH 800/160 MG 1 UDTAB TABLET PO SCH (08:30)
[2017-01-06] MEDS: LEVOTHYROXINE SODIUM 50 MCG TABLET PO SCH (08:30)
[2017-01-06] MEDS: SENNOSIDES 8.6 MG TABLET PO SCH (08:30)
[2017-01-06] MEDS: DOCUSATE SODIUM 100 MG CAPSULE PO SCH (08:30)
[2017-01-06] MEDS: GABAPENTIN 400 MG CAPSULE PO SCH ×2 (08:30→12:23)
[2017-01-06 08:31] VITALS: BP 108/65
[2017-01-06] MEDS: ATENOLOL 50 MG TABLET PO SCH (08:31)
--- NOTE | 2017-01-06 12:14 | NUR ---
EDISON BARAJAS GAVE AN ORDER TO D/C HOLD AND D/C TO [facility] AND TO FOLLOW UP WITH PSYCH AND MEDICAL DOCTORS. PT. WITHOUT DISTRESS, DENIES SUICIDAL AND HOMICIDAL. PT. SIGNED THE DISCHARGE PAPERS AND AND BELONGINGS READY. DR. ABARCA MADE AWARE OF THE DISCHARGE AND SAID OK FOR DISCHARGE AND TO CONTINUE SAME MEDS AND NOTIFIED THAT BP MED NOT GIVEN THIS MORNING FOR A LOW BP. REPORT GIVEN TO PIETRO OVER THE FACILITY.
--- NOTE | 2017-01-06 13:20 | NUR ---
PT. LEFT THE UNIT VIA AMBULANCE AND TRANSPORTED VIA A GURNEY WITH BELONGINGS. LEFT WITHOUT DISTRESS AND ON STABLE CONDITION. V/S TAKEN: 138/83, MT 93, OXYGEN SAT 96%, RR 20, TEMP. 98.
--- NOTE | 2017-01-06 17:29 | NUR ---
Discharge Note: Patient was discharged to [address] [place] [address]. . Via med response. Patient did not have any family to contact. Patient was agreeable with the discharge plan. Patient's mood and affect were appropriate upon discharge. Patient denied suicidal and homicidal ideations. Patient will be followed by psychiatrist Dr. Gunter where he can further discuss his hx of substance abuse. For smoking cessation patient was referred to a telephone meeting with the [facility] for Monday02/08/17 at 9:30am. [phone] PIN: [id number]# Monday Morning [place]. Facilitated info to IDT team who are in agreement with discharge arrangement. The multidisciplinary exitcare form was done, printed, signed, and given to the patient.
== END 2017-01-06 13:20 | DRG 885 ==
LOC: ER 18:17 → MERGE 18:17 → GPS 21:00
PROVIDERS: ADMIT Psychiatry & Neurology Psychiatry; ATTEND Internal Medicine
DX: F33.3 Major depressive disorder, recurrent, severe with psychotic symptoms (principal); N39.0 Urinary tract infection, site not specified; I10 Essential (primary) hypertension; E03.9 Hypothyroidism, unspecified; F29 Unspecified psychosis not due to a substance or known physiological condition; Z73.6 Limitation of activities due to disability; F41.9 Anxiety disorder, unspecified; Z79.899 Other long term (current) drug therapy
CPT/HCPCS: 36415; 80048-TC; 80053-TC; 80061-TC; 80076-TC; 80305; 81000-TC; 85025-TC; 87081-TC; 87086-TC; A4606; G0480; J2060; J3490; Z7610

== ENCOUNTER 2022-01-30 22:26 | Emergency (ER) | payer MEDICARE, OTHER ==
[~2022-01-30] VITALS: Ht 175.3 cm; Wt 90.7 kg
[~2022-01-30 22:26] MED LIST changes: -BUPR150T10 PO; +DOCU-141 PO; +GABA-536 PO; +SENN-261 PO; -VENL150C58 PO
--- NOTE | 2022-01-30 22:53 | NUR ---
URINE COLLECTED AND SENT TO LAB
--- NOTE | 2022-01-30 22:53 | NUR ---
BLOOD COLLECTED AND SENT TO LAB
[2022-01-30 23:18] LABS: BASOPHILS % (AUTO) 0.3 % (0.0-2.0); EOSINOPHILS % (AUTO) 4.2 % (0.0-6.0); HEMATOCRIT 37 % (39-51); HEMOGLOBIN 12.5 g/dL (13.5-17.5); LYMPHOCYTES # (AUTO) 4.3 K/uL (0.8-4.8); LYMPHOCYTES % (AUTO) 32.8 % (20.0-44.0); MEAN CORPUSCULAR HGB CONC 34 g/dl (31.0-36.0); MEAN CORPUSCULAR VOLUME 86 fL (80-96); MONOCYTES # (AUTO) 1.5 K/uL (0.1-1.30); MONOCYTES % (AUTO) 11.5 % (2.0-12.0); NEUTROPHILS # (AUTO) 6.7 K/uL (1.8-8.9); NEUTROPHILS % (AUTO) 51.2 % (43.0-81.0); PLATELET COUNT (AUTO) 366 K/uL (150-450); RED BLOOD CELL COUNT(AUTO) 4.33 MIL/uL (4.5-6.0); WHITE BLOOD COUNT (AUTO) 13.1 K/uL (4.3-11.0)
[2022-01-30] MEDS ORDERED: clonazePAM 1 MG TABLET PO ONE (23:30)
[2022-01-30] MEDS ORDERED: clonazePAM 1 MG TABLET ONE (23:43)
[2022-01-30 23:44] LABS: CALCIUM, SERUM 9.3 mg/dL (8.5-10.1); CARBON DIOXIDE 32 mmol/L (21-32); CHLORIDE 99 mmol/L (98-107); CREATININE 1.2 mg/dL (0.6-1.3); GLUCOSE 100 mg/dL (74-106); POTASSIUM 4.1 mmol/L (3.5-5.1); SODIUM SERUM 136 mmol/L (136-145); UREA NITROGEN, BLOOD 22 mg/dL (7-18)
--- NOTE | 2022-01-31 02:44 | NUR ---
FACESHEET AND CLINICALS FAXED TO [facility].
--- NOTE | 2022-01-31 03:55 | NUR ---
CALLED [facility] [phone] S/W MARIBEL ISFUENTES 90 MIN [employer] TIME
--- NOTE | 2022-01-31 05:42 | NUR ---
REPORT GIVEN TO IFEANYI AT [facility]
[2022-01-31 05:47] VITALS: BP 119/79
--- NOTE | 2022-01-31 05:52 | NUR ---
APA AT BED SIDE TO PROCESS CHEMIST THE PATIENT
--- NOTE | 2022-01-31 06:05 | NUR ---
PT WAS TRANSFERRED BACK TO [facility] IN STABLE CONDITION
== END 2022-01-31 06:05 ==
LOC: ER 22:28
DX: R07.89 Other chest pain (principal); I10 Essential (primary) hypertension; E11.9 Type 2 diabetes mellitus without complications; D64.9 Anemia, unspecified; E03.9 Hypothyroidism, unspecified; E78.5 Hyperlipidemia, unspecified; Z79.899 Other long term (current) drug therapy
CPT/HCPCS: 36415; 71045-TC; 80048-TC; 84484-TC; 85025-TC